=== PATIENT | female | born 1945 | race Caucasian/White ===

== ENCOUNTER → 2017-04-20 | Outpatient (CLI) | payer MEDICARE, OTHER ==
[~2017-04-20] MED LIST: ACEBUTCAFT PO; ACET325 PO; ASCO500 PO; ASPI81EC PO; CLOP75 PO; Colace100 MG PO; DEXA.5 PO; DEXA1 PO; DEXA2 PO; DEXA4 PO; ELIQUIS5 MG PO; FAMO20 PO; IODPOTL PO; LEVFLO500 PO; LEVO750 PO; METPRE4DP PO; MULVITMIND PO; ONDA4 PO; PANT40 PO; Percocet 5-3251 EACH PO; VITAMINS; WARF5 PO; Zofran Odt4 MG SL
== END ==
LOC: LAB EV 19:08
DX: N39.0 Urinary tract infection, site not specified (principal)
CPT/HCPCS: 87077; 87086; 87186